=== PATIENT | male | born 1955 | race Caucasian/White ===

== ENCOUNTER 2018-05-04 13:20 | Emergency (ER) | payer BC ==
[~2018-05-04] VITALS: Ht 177.8 cm; Wt 140.6 kg
[2018-05-04] MEDS ORDERED: WELCHOL625 MG PO (13:36)
[2018-05-04] MEDS ORDERED: SYNTHROID100 MCG PO (13:37)
[2018-05-04] MEDS ORDERED: PROPECIA1 MG PO (13:37)
[2018-05-04] MEDS ORDERED: NIASPAN1000 MG PO (13:37)
[2018-05-04] MEDS ORDERED: BENAZEPRIL HCL20 MG PO (13:38)
[2018-05-04] MEDS ORDERED: ASPIR 8181 MG PO (13:38)
[2018-05-04] MEDS ORDERED: ULTRACET PO (16:39)
[2018-05-04] MEDS ORDERED: DICLOFENAC POTA50 MG PO (16:39)
== END 2018-05-04 17:13 | disposition home or self-care (01) ==
LOC: ER 13:20
DX: M25.462 Effusion, left knee (principal)